=== PATIENT | female | born 1950 ===

== ENCOUNTER 2017-10-13 15:43 | Outpatient (CLI) | payer OTHER ==
[~2017-10-13 15:43] MED LIST: COZAAR50 MG PO; LIPITOR20 MG
== END 2017-10-13 15:54 | disposition home or self-care (01) ==
LOC: MAMO-SONO 15:43
DX: C50.411 Malignant neoplasm of upper-outer quadrant of right female breast (principal)

== ENCOUNTER 2019-10-18 09:38 | Outpatient (CLI) | payer OTHER | END 2019-10-18 09:43 | disposition home or self-care (01) | LOC: LAB 09:38 | DX: D50.8 Other iron deficiency anemias (principal); E03.8 Other specified hypothyroidism; E78.2 Mixed hyperlipidemia; I11.9 Hypertensive heart disease without heart failure; E56.8 Deficiency of other vitamins; N39.0 Urinary tract infection, site not specified; Z12.11 Encounter for screening for malignant neoplasm of colon; E55.9 Vitamin D deficiency, unspecified; N19 Unspecified kidney failure; E11.9 Type 2 diabetes mellitus without complications; R80.8 Other proteinuria; C18.0 Malignant neoplasm of cecum; K92.1 Melena; R06.2 Wheezing ==

== ENCOUNTER 2019-10-25 12:19 | Outpatient (CLI) | payer OTHER | END 2019-10-25 12:27 | disposition home or self-care (01) | LOC: LAB 12:19 | DX: D50.8 Other iron deficiency anemias (principal); E03.8 Other specified hypothyroidism; E78.2 Mixed hyperlipidemia; I11.9 Hypertensive heart disease without heart failure; E56.8 Deficiency of other vitamins; N39.0 Urinary tract infection, site not specified; Z12.11 Encounter for screening for malignant neoplasm of colon; E55.9 Vitamin D deficiency, unspecified; N19 Unspecified kidney failure; R80.8 Other proteinuria; C18.0 Malignant neoplasm of cecum; K92.1 Melena; R06.02 Shortness of breath ==

== ENCOUNTER 2019-10-25 13:11 | Outpatient (CLI) | payer OTHER | END 2019-10-25 14:15 | disposition home or self-care (01) | LOC: MAMO-SONO 13:11 | DX: C50.411 Malignant neoplasm of upper-outer quadrant of right female breast (principal); N60.11 Diffuse cystic mastopathy of right breast; N60.12 Diffuse cystic mastopathy of left breast ==

== ENCOUNTER 2019-11-02 10:14 | Outpatient (CLI) | payer OTHER | END 2019-11-02 10:15 | disposition home or self-care (01) | LOC: NUCLEAR 10:14 | DX: M81.0 Age-related osteoporosis without current pathological fracture (principal) ==

== ENCOUNTER → 2020-10-23 15:00 | Outpatient (CLI) | payer OTHER | END | disposition home or self-care (01) | LOC: PPH VACUNA 15:00 | PROVIDERS: ATTEND Emergency Medicine Pediatric Emergency Medicine | DX: Z23 Encounter for immunization (principal) ==

== ENCOUNTER 2020-10-26 13:35 | Outpatient (CLI) | payer OTHER | END 2020-10-26 14:01 | disposition HB | LOC: MAMO-SONO 13:35 | PROVIDERS: ATTEND Internal Medicine Geriatric Medicine | DX: N60.02 Solitary cyst of left breast (principal); Z12.31 Encounter for screening mammogram for malignant neoplasm of breast; N60.11 Diffuse cystic mastopathy of right breast; N60.12 Diffuse cystic mastopathy of left breast; N64.59 Other signs and symptoms in breast ==

== ENCOUNTER → 2020-11-13 07:00 | Outpatient (CLI) | payer OTHER | END | disposition home or self-care (01) | LOC: PPH VACUNA 07:00 | PROVIDERS: ATTEND Emergency Medicine Pediatric Emergency Medicine | DX: Z23 Encounter for immunization (principal) ==

== ENCOUNTER 2021-10-24 08:33 | Outpatient (CLI) | payer OTHER | END 2021-10-24 08:34 | disposition home or self-care (01) | LOC: LAB 08:33 | PROVIDERS: ATTEND Internal Medicine Geriatric Medicine | DX: D50.8 Other iron deficiency anemias (principal); E03.8 Other specified hypothyroidism; E78.2 Mixed hyperlipidemia; I11.9 Hypertensive heart disease without heart failure; E56.8 Deficiency of other vitamins; N39.0 Urinary tract infection, site not specified; Z12.11 Encounter for screening for malignant neoplasm of colon; R19.5 Other fecal abnormalities; E55.9 Vitamin D deficiency, unspecified; N19 Unspecified kidney failure; E11.9 Type 2 diabetes mellitus without complications; R80.8 Other proteinuria ==

== ENCOUNTER → 2021-10-24 | Outpatient (CLI) | payer OTHER | END | disposition home or self-care (01) | LOC: MAMO-SONO 09:10 | PROVIDERS: ATTEND Internal Medicine | DX: N60.11 Diffuse cystic mastopathy of right breast (principal); N60.12 Diffuse cystic mastopathy of left breast; C50.411 Malignant neoplasm of upper-outer quadrant of right female breast; Z12.31 Encounter for screening mammogram for malignant neoplasm of breast ==

== ENCOUNTER 2022-06-27 11:48 | Outpatient (CLI) | payer OTHER | END 2022-06-27 14:13 | disposition home or self-care (01) | LOC: RAD 11:48 | PROVIDERS: ATTEND General Practice | DX: J44.9 Chronic obstructive pulmonary disease, unspecified (principal); M19.041 Primary osteoarthritis, right hand; M19.042 Primary osteoarthritis, left hand ==

== ENCOUNTER 2022-07-18 08:56 | Outpatient (CLI) | payer OTHER | END 2022-07-18 09:03 | disposition home or self-care (01) | LOC: RX STUDY 08:56 | PROVIDERS: ATTEND Internal Medicine Pulmonary Disease | DX: R13.11 Dysphagia, oral phase (principal) ==

== ENCOUNTER 2022-11-13 10:42 | Outpatient (CLI) | payer OTHER | END 2022-11-13 10:49 | disposition home or self-care (01) | LOC: MAMO-SONO 10:42 | PROVIDERS: ATTEND Internal Medicine Pulmonary Disease | DX: Z12.31 Encounter for screening mammogram for malignant neoplasm of breast (principal); C50.919 Malignant neoplasm of unspecified site of unspecified female breast; N63.0 Unspecified lump in unspecified breast; N64.4 Mastodynia; N60.11 Diffuse cystic mastopathy of right breast ==

== ENCOUNTER 2023-05-15 07:07 | Outpatient (CLI) | payer OTHER | END 2023-05-15 07:21 | disposition home or self-care (01) | LOC: NUCLEAR 07:07 | PROVIDERS: ATTEND Internal Medicine | DX: I25.118 Atherosclerotic heart disease of native coronary artery with other forms of angina pectoris (principal); R07.9 Chest pain, unspecified; E78.1 Pure hyperglyceridemia | CPT/HCPCS: 78452; 93017; A9500 ==

== ENCOUNTER 2023-11-25 13:31 | Outpatient (CLI) | payer OTHER | END 2023-11-25 13:51 | disposition home or self-care (01) | LOC: MAMO-SONO 13:31 | PROVIDERS: ATTEND Internal Medicine | DX: C50.411 Malignant neoplasm of upper-outer quadrant of right female breast (principal); Z85.3 Personal history of malignant neoplasm of breast; Z12.31 Encounter for screening mammogram for malignant neoplasm of breast ==

== ENCOUNTER 2025-07-04 13:33 | Outpatient (CLI) | payer OTHER | END 2025-07-04 13:35 | disposition home or self-care (01) | LOC: SONOGRAMA 13:33 | PROVIDERS: ATTEND Internal Medicine Rheumatology | DX: M76.61 Achilles tendinitis, right leg (principal) ==